=== PATIENT | female | born 1965 | race Caucasian/White ===

== ENCOUNTER 2017-03-31 19:53 | Inpatient (IN) | payer OTHER ==
[~2017-03-31] VITALS: Ht 177.8 cm; Wt 96.7 kg
[2017-03-31 20:56] LABS: BASOPHIL % 0.3 % (0-2); PLATELET COUNT 308 x10^3mcL (130-400); RED CELL DISTRIBUTION WIDTH 12.9 % (11.5-14.5)
[2017-03-31 21:06] LABS: CALCIUM 9.2 mg/dL (8.5-10.1); CARBON DIOXIDE 30.7 mmol/L (21-32); CHLORIDE SERUM 105 mmol/L (98-107); CREATININE SERUM 0.8 mg/dL (0.6-1.0); GFR1 > 60 mL/min; GLUCOSE SERUM 132 mg/dL (74-106); POTASSIUM SERUM 3.7 mmol/L (3.5-5.1); SODIUM SERUM 142 mmol/L (136-145)
[2017-03-31 21:19] LABS: ALBUMIN 3.7 g/dL (3.4-5.0); ALKALINE PHOSPHATASE 97 U/L (46-116); ALT/SGPT 35 U/L (14-59); AST/SGOT 16 U/L (15-37); BILIRUBIN TOTAL 0.7 mg/dL (0.20-1.00); FREE T4 0.99 ng/dL (0.76-1.46); MAGNESIUM 2.2 mg/dL (1.8-2.4); TOTAL PROTEIN, SERUM 8.1 g/dL (6.4-8.2)
[2017-03-31 22:34] LABS: CHOLESTEROL/HDL RATIO 5.9; PHOSPHOROUS 3.7 mg/dL (2.5-4.9)
[2017-03-31 22:38] VITALS: BP 138/87
[2017-03-31 22:42] LABS: T3 TOTAL 1.32 ng/mL
[2017-03-31 22:44] LABS: FREE T4 0.98 ng/dL (0.76-1.46); FREE THYROXINE INDEX 3.3 ug/dL (1.4-4.5); T4(THYROXINE) 9.7 ug/dL (4.7-13.3)
[2017-03-31 22:52] VITALS: BP 138/87
[2017-03-31 23:31] LABS: microscopic required? NO
[2017-03-31 23:48] LABS: UA SPECIFIC GRAVITY <=1.005 (1.005-1.035); urine erythrocyte NEGATIVE (NEGATIVE)
[2017-04-01 00:04] LABS: AMPHETAMINE QUAL UR NONE DETECTED (NEG <=1000)
[2017-04-01 05:31] VITALS: BP 114/73
[2017-04-01 07:04] LABS: BASOPHIL % 0.2 % (0-2); PLATELET COUNT 278 x10^3mcL (130-400); RED CELL DISTRIBUTION WIDTH 12.8 % (11.5-14.5)
[2017-04-01 07:05] LABS: CALCIUM 9.2 mg/dL (8.5-10.1); CARBON DIOXIDE 29.2 mmol/L (21-32); CHLORIDE SERUM 109 mmol/L (98-107); CREATININE SERUM 0.7 mg/dL (0.6-1.0); GFR1 > 60 mL/min; GLUCOSE SERUM 103 mg/dL (74-106); MAGNESIUM 2.2 mg/dL (1.8-2.4); PHOSPHOROUS 4.6 mg/dL (2.5-4.9); POTASSIUM SERUM 4.1 mmol/L (3.5-5.1); SODIUM SERUM 146 mmol/L (136-145)
[2017-04-01 10:21] VITALS: BP 129/81
[2017-04-01 13:09] VITALS: BP 122/88
[2017-04-01] MEDS ORDERED: TOP50 PO (14:06)
[2017-04-01 14:22] VITALS: BP 122/88
== END 2017-04-01 15:20 | disposition home or self-care (01) | DRG 206 ==
LOC: ED 19:53 → DU 21:33
PROVIDERS: Emergency Medicine; ADMIT Family Medicine
DX: M94.0 Chondrocostal junction syndrome [Tietze] (principal); F12.10 Cannabis abuse, uncomplicated; I10 Essential (primary) hypertension; M54.42 Lumbago with sciatica, left side; E02 Subclinical iodine-deficiency hypothyroidism; F41.9 Anxiety disorder, unspecified; E78.5 Hyperlipidemia, unspecified; Z79.82 Long term (current) use of aspirin; Z68.30 Body mass index [BMI] 30.0-30.9, adult; Z91.19 Patient's noncompliance with other medical treatment and regimen
CPT/HCPCS: 83880; 84439; 85378; J3490; J7030; Q0092